=== PATIENT | male | born 1970 | race Caucasian/White ===

== ENCOUNTER → 2019-10-06 | Emergency (ER) | payer MEDICAID, OTHER ==
[~2019-10-06] VITALS: Ht 172.7 cm; Wt 83.5 kg
[2019-10-06 13:24] VITALS: BP 129/80
[2019-10-06 14:13] LABS: HEMATOCRIT 43.2 % (42.0-52.0); MEAN CORPUSCULAR VOLUME 88 FL (80-99); PLATELET COUNT 314 K/UL (150-450); RED BLOOD COUNT 4.93 M/UL (4.70-6.10); RED CELL DISTRIBUTION WIDTH 12.2 % (11.6-14.8); WHITE BLOOD COUNT 9.5 K/UL (4.8-10.8)
[2019-10-06 14:33] LABS: ANION GAP 7 mmol/L (5-15); BLOOD UREA NITROGEN 14 mg/dL (7-18); CARBON DIOXIDE 29 MMOL/L (21-32); CHLORIDE 105 MMOL/L (98-107); CREATININE 1.3 MG/DL (0.55-1.30); POTASSIUM 4.4 MMOL/L (3.5-5.1); SODIUM 141 MMOL/L (136-145)
[2019-10-06 14:38] LABS: ALANINE AMINOTRANSFERASE 34 U/L (12-78); ALBUMIN 3.7 G/DL (3.4-5.0); ALBUMIN/GLOBULIN RATIO 1.1 (1.0-2.7); ALKALINE PHOSPHATASE 100 U/L (46-116); ASPARTATE AMINO TRANSFERASE 16 U/L (15-37); BILIRUBIN,TOTAL 0.2 MG/DL (0.2-1.0)
--- NOTE | 2019-10-06 16:51 | Emergency Room Report ---
History of Present Illness General Chief Complaint: Overdose Source: Patient, EMS Present Illness HPI 48-year-old male with history of restless leg syndrome and anxiety brought in by paramedics due to taking 8 tablets of Soma last night to help him sleep better. He is oriented to time and place and is alert. Reports that he took the pills just because he wanted to sleep denies any suicidal homicidal ideation. Reports that he also takes amitriptyline. Patient denies chest pain , shortness of breath, headache or dizziness. Denies any tobacco alcohol, alcohol intake, drug use. Is sitting comfortably with stable vital signs. Allergies: Coded Allergies: No Known Allergies (Unverified , 10/06/19) COVID-19 Screening Contact w/high risk pt: No Recent Travel to affected area: No Experienced COVID-19 symptoms?: No COVID-19 Testing performed SPEECH AND LANGUAGE ASSISTANT: No Patient History Past Medical History: see triage record Past Surgical History: none Pertinent Family History: none Immunizations: UTD Reviewed Nursing Documentation: PMH: Agreed; PSxH: Agreed Nursing Documentation-PMH Hx Hypertension: Yes Review of Systems All Other Systems: negative except mentioned in HPI Physical Exam Vital Signs Date Time Temp Pulse Resp B/P (MAP) Pulse Ox O2 Delivery O2 Flow Rate FiO2 10/06/19 13:24 98.4 90 19 129/80 (96) 95 Room Air Sp02 EP Interpretation: reviewed, normal General Appearance: no apparent distress, alert, GCS 15, non-toxic Head: normocephalic, atraumatic Eyes: bilateral eye normal inspection, bilateral eye PERRL ENT: hearing grossly normal, normal pharynx, no angioedema, normal voice Neck: full range of motion, supple/symm/no masses Respiratory: chest non-tender, lungs clear, normal breath sounds, speaking full sentences Cardiovascular #1: regular rate, rhythm, no edema, no murmur Gastrointestinal: soft Genitourinary: no CVA tenderness Musculoskeletal: back normal Neurologic: alert, motor strength/tone normal, oriented x3, sensory intact, responsive, speech normal Psychiatric: judgement/insight normal, memory normal, mood/affect normal, no suicidal/homicidal ideation Skin: no rash Lymphatic: no adenopathy Medical Decision Making PA Attestation All diagnoses and treatment plans were reviewed and discussed with my supervising physician Dr. Gary Diagnostic Impression: Primary Impression: Drug overdose ER Course 48-year-old male with history of restless leg syndrome and anxiety brought in by paramedics due to taking 8 tablets of Soma last night to help him sleep better. He is oriented to time and place and is alert. Reports that he took the pills just because he wanted to sleep denies any suicidal homicidal ideation. Reports that he also takes amitriptyline. Patient denies chest pain , shortness of breath, headache or dizziness. Denies any tobacco alcohol, alcohol intake, drug use. Is sitting comfortably with stable vital signs. Ddx considered but are not limited to: generalized anxiety disorder, panic attack, depression with psychotic feature, bipolar disorder, drug overdose , suicidal gesture Vital signs: are WNL, pt. is afebrile H&PE are most consistent with: drug overdose, suicidal gesture ORDERS: Psychiatric order set ED INTERVENTIONS: NS bolus Was observed for 2 hours per recommendation poison control, patient is stable, patient treated for asymptomatic cold cup facility. Patient is medically cleared [facility] E[facility] Diagnostic Results Rate: normal Rhythm: NSR ST Segments: no acute changes Other Impression No acute ST changes Last Vital Signs Date Time Temp Pulse Resp B/P (MAP) Pulse Ox O2 Delivery O2 Flow Rate FiO2 10/06/19 13:34 90 19 Room Air 10/06/19 13:24 98.4 129/80 95 Disposition: PSYCH HOSP/UNIT Condition: Stable Referrals: NOT CHOSEN IPA/,REFERRING (PCP) Danielle Shah October 06, 2019 16:51
[2019-10-06 17:30] VITALS: BP 135/76
== END | disposition home or self-care (01) ==
LOC: EDUNIT# 13:23 → EDBD 13:24 → EMR 13:54
DX: T42.8X1A Poisoning by antiparkinsonism drugs and other central muscle-tone depressants, accidental (unintentional), initial encounter (principal); F41.9 Anxiety disorder, unspecified; X58.XXXA Exposure to other specified factors, initial encounter; Y92.9 Unspecified place or not applicable; Z79.899 Other long term (current) drug therapy; I10 Essential (primary) hypertension
CPT/HCPCS: 36415; 80053; 80307; 85007; 85025; 93005; 96360; G0480; G0481; Z7502; 99285